=== PATIENT | male | born 1975 | race Caucasian/White ===

== ENCOUNTER 2019-01-29 00:37 | Emergency (ER) | payer BC ==
[~2019-01-29] VITALS: Ht 182.9 cm; Wt 68.0 kg
[2019-01-29 01:00] VITALS: BP 113/68
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
--- NOTE | 2019-01-29 01:23 | NUR ---
PT TAKEN TO CT VIA [facility]
--- NOTE | 2019-01-29 01:41 | NUR ---
PT RETURNED FROM CT VIA [facility]. FRIEND AT BEDSIDE.
[2019-01-29] MEDS ORDERED: IBUPROFEN 600 MG TABLET PO ONE ×2 (02:28→02:30)
--- NOTE | 2019-01-29 02:49 | NUR ---
Patient discharged to home in stable condition. Written and verbal after care instructions given. Patient verbalizes understanding of instruction. PT AMBULATORY WITH STEADY GAIT.
== END 2019-01-29 02:51 | disposition home or self-care (01) ==
LOC: ER 00:41
DX: S93.491A Sprain of other ligament of right ankle, initial encounter (principal); S00.01XA Abrasion of scalp, initial encounter; S09.8XXA Other specified injuries of head, initial encounter; R51 Headache; F32.9 Major depressive disorder, single episode, unspecified; F10.10 Alcohol abuse, uncomplicated; Y90.9 Presence of alcohol in blood, level not specified; W18.39XA Other fall on same level, initial encounter; Y93.89 Activity, other specified; Y92.89 Other specified places as the place of occurrence of the external cause; Y99.8 Other external cause status
CPT/HCPCS: 70450-TC; 73610-TC; A6403